=== PATIENT | female | born 1960 | race Hispanic/Latino ===

== ENCOUNTER 2020-01-01 00:18 | Inpatient (IN) | payer SELFPAY ==
[2020-01-01 00:40] LABS: Mean Corpuscular HGB CONC 34.3 g/dL (32.0-36.0); Mean Corpuscular Hemoglobin 30.4 pg (27.0-31.0); Mean Corpuscular Volume 88.6 fL (78.0-98.0); Mean Platelet Volume 9.9 fL (7.4-10.4); Platelet Count 286 thou/uL (130-400); RBC Distribution Width 11.7 % (11.5-14.5); Red Blood Cell (RBC) Count 4.62 mill/uL (4.20-5.40); White Blood Cell (WBC) Count 12.4 thou/uL (4.8-10.8)
[2020-01-01 00:46] LABS: INR-International Normal Ratio 0.9; PTT 31.3 sec (22.9-36.1)
[2020-01-01 00:56] LABS: Lymphocytes 53 % (21-51); MDiff Complete? YES; Neutrophil 47 % (42-75); Platelet Morphology Comment Appears Adequate; RBC Morphology Normal
[2020-01-01 01:06] LABS: ALT (SGPT) 26 U/L (8-55); AST (SGOT) 18 U/L (5-34); Albumin 4.4 g/dL (3.5-5.0); Alkaline Phosphatase 111 U/L (40-110); Anion Gap 15 mmol/L (10-20); BUN (Urea Nitrogen) 17 mg/dL (9.8-20.1); Bilirubin, Total 0.2 mg/dL (0.2-1.2); CK (CPK) 58 U/L (29-168); Calc. Creatinine Clearance 0 mL/min (70-130); Calcium 9.8 mg/dL (7.8-10.44); Carbon Dioxide 24 mmol/L (22-29); Chloride 101 mmol/L (98-107); Estimated GFR-MDRD 72; Globulin 3.4 g/dL (2.4-3.5); Glucose 327 mg/dL (70-105); Potassium 4.2 mmol/L (3.5-5.1); Protein, Total 7.8 g/dL (6.0-8.3); Sodium 136 mmol/L (136-145)
[2020-01-01] MEDS ORDERED: Aspirin 325 MG TAB ONE (01:20)
[2020-01-01] MEDS ORDERED: hydrALAZINE 20 MG/ML VIAL SLOW IVP PRN (01:52)
[2020-01-01] MEDS ORDERED: Labetalol HCl 100 MG/20 ML VIAL SLOW IVP PRN (01:52)
[2020-01-01] MEDS ORDERED: Dextrose 50% Abboject 50 ML SYRINGE SLOW IVP PRN (01:56)
[2020-01-01] MEDS ORDERED: HumaLOG 300 UNITS/3 ML VIAL SC PRN ×2 (01:56)
[2020-01-01] MEDS ORDERED: Dextrose 5% in Water 1,000 ML IV PRN (01:56)
[2020-01-01] MEDS ORDERED: Acetaminophen 325 MG TAB PO PRN (01:57)
[2020-01-01 02:35] LABS: #Basophils 0.1 thou/uL (0.0-0.2); #Eosinphils 0.1 thou/uL (0.0-0.7); #Lymphocytes 3.2 thou/uL (1.20-3.40); #Monocytes 0.5 thou/uL (0.11-0.59); %Basophils 0.9 % (0.0-1.0); %Eosinophils 1.5 % (0.0-10.0); %Lymphocytes 36.2 % (21.0-51.0); %Monocytes 5.6 % (0.0-10.0); %Neutrophils 55.8 % (42.0-75.0); Hemoglobin 13.5 g/dL (12.0-16.0); Mean Corpuscular HGB CONC 34.6 g/dL (32.0-36.0); Mean Corpuscular Hemoglobin 30.8 pg (27.0-31.0); Mean Platelet Volume 9.5 fL (7.4-10.4); Platelet Count 255 thou/uL (130-400); RBC Distribution Width 11.6 % (11.5-14.5); Red Blood Cell (RBC) Count 4.37 mill/uL (4.20-5.40)
[2020-01-01 02:45] LABS: Hemoglobin A1c 11.1 % (4.0-6.0)
--- NOTE | 2020-01-01 02:50 | HP ---
PRIMARY CARE PHYSICIAN: No PCP. CHIEF COMPLAINT: Left-sided numbness. HISTORY OF PRESENT ILLNESS: The patient is a 59-year-old female, with a past medical history significant for type 2 diabetes, smoker and obesity, who presents to the ER for the above complaint. Patient reports at approximately 30 minutes prior to arrival to the ER, she had acute onset of left facial numbness, left upper extremity numbness, and some mild weakness to her left upper extremity while lying in bed. She denies any headache, vision changes, or difficulty swallowing. She denies any recent trauma or falls. She is not on any blood thinners. She denies chest pain. She has no other complaints. For these reasons, she came to the ER. In the ER, the patient presented with hypertensive with a blood pressure of 238/ 113. EKG, normal sinus rhythm, 97 beats per minute. No ST elevations. CT of the brain and CTA of the head and neck were negative for any acute process. The patient was evaluated by the doctor and determined to have an NIH of zero. She was found to have no deficits and had a blood sugar of 327. The patient was given an aspirin full dose. PAST MEDICAL HISTORY: Diabetes, type 2. PAST SURGICAL HISTORY: 1. Hernia x2. 2. . SOCIAL HISTORY: The patient lives with her family in [place]. She does not work. She denies any history of alcohol or illicit drug use. She is a former half pack per day smoker for over 20 years. She quit four months ago. FAMILY HISTORY: Significant for diabetes, hypertension, and stroke. ALLERGIES: NO KNOWN DRUG ALLERGIES. HOME MEDICATIONS: 1. Glipizide 5 mg p.o. daily. 2. Metformin 750 mg p.o. t.i.d. REVIEW OF SYSTEMS: All other review of systems are negative unless otherwise noted in the HPI. PHYSICAL EXAMINATION: VITAL SIGNS: Temperature 98.6, oral; blood pressure 177/101; pulse 82; respirations 20; and SpO2 of 98% on room air. Pain 0/10. CONSTITUTIONAL: Patient appears nontoxic, pain-free, in no acute distress. She is alert and oriented to person, place, and time. HEAD: Atraumatic and normocephalic. EYES: PERRLA. Extraocular muscles are intact. No nystagmus. ENT: Nares are patent bilaterally. No bleeding. Pharynx clear. Uvula midline. Tonsils normal. Moist mucous membranes. NECK: Supple. Trachea midline. No meningeal signs. No cervical adenopathy. No tenderness. RESPIRATORY: Respirations are even and unlabored. No rhonchi, wheezes, or rales appreciated. CARDIOVASCULAR: Regular rate and rhythm. S1 and S2 appreciated. No murmurs, rubs, or gallops. ABDOMEN: Soft and nontender. Active bowel sounds. No peritoneal signs. No rigidity. No guarding. No rebound. Negative Salnias's. BACK: Full range of motion. No central spinous tenderness. No CVA tenderness. EXTREMITIES: Upper extremities, normal range of motion. Normal strength. Palpable radial pulses. Lower extremities, normal range of motion. Normal motor strength. Sensation intact. Palpable posterior tibial pulses and palpable pedal pulses. NEUROLOGIC: Patient is A and O x4 to person, place, and time. She has a normal gait. Cranial nerves 2 through 12 are intact. No focal, no sensory deficits observed or noted. SKIN: Clean, dry, and intact. PSYCHIATRIC: Normal affect. LABORATORIES AND DIAGNOSTICS: EKG normal sinus rhythm, [address] of the brain and CTA of the head and neck were negative for any acute process. Sodium 136, potassium 4.2, chloride 101, carbon dioxide 24, BUN 17, creatinine 0.82, GFR 72, glucose 327, calcium 9.8, total bilirubin 0.2, alkaline phosphatase 111, AST 18, and ALT 26. Initial troponin was negative. WBCs 12.4, hemoglobin 14, hematocrit 40.9, and platelets 286. PT 12 and INR 0.9. IMPRESSION AND PLAN: 1. Left-sided numbness, resolved on arrival. We will admit the patient to stroke unit, observation status. Expected length of stay less than two midnights. Patient presented for left facial and left upper extremity numbness 30 minutes prior to her arrival. She presented hypertensive with a blood pressure of 238/113. EKG was normal sinus rhythm. CT and CTA of the head and neck were negative for any acute process. The patient's blood pressure came down on its own and the symptoms resolved spontaneously. On exam, there are no focal deficits. NIH of zero. We will order MRI, echocardiogram, and chest x-ray. We will consult Neurology and Physical Therapy. We will check fasting lipid, TSH, UA, folate, and B12. We will get a UA. We will perform neuro checks q.4, NIH q.shift. We will allow permissive hypertension. 2. Hypertensive urgency. The patient presented with a blood pressure of 238/ 113. Currently, her blood pressure is 186/80. We will allow permissive hypertension. We will add p.r.n. hydralazine and labetalol. 3. Diabetes, type 2. Patient presented with a blood glucose of 327. We will check a hemoglobin A1c. We will start mild sliding scale. We will perform Accu-Cheks before meals and at bedtime. We will hold patient's home dose of metformin and glipizide at this time. 4. Tobacco abuse. Patient reports a half pack per day [id number] of smoking. She recently quit four months ago. We will camp counselor on tobacco cessation. 5. SCDs for deep venous thrombosis prophylaxis. Pepcid for gastrointestinal prophylaxis. 6. Patient is a full code. She did not give MPOA. 7. Discussed this case with Dr. Christoph Cerda. Job ID: [id number] [facility] HOSPITALWilfred
[2020-01-01 03:05] LABS: Anion Gap 16 mmol/L (10-20); BUN (Urea Nitrogen) 14 mg/dL (9.8-20.1); Calc. Creatinine Clearance 0 mL/min (70-130); Calcium 9.1 mg/dL (7.8-10.44); Carbon Dioxide 21 mmol/L (22-29); Cardiac Risk 5.7 (Less than 4.5); Chloride 101 mmol/L (98-107); Cholesterol 210 mg/dl (< 200 Desired); Estimated GFR-MDRD 72; Glucose 325 mg/dL (70-105); HDL Cholesterol 37 mg/dL (>60 Neg Risk); LDL Cholesterol, Calculated 150 mg/dL; Potassium 4.3 mmol/L (3.5-5.1); Sodium 134 mmol/L (136-145); Triglycerides 115 mg/dL (Less than 150)
[2020-01-01 03:18] LABS: Thyroid Stimulating Hormone 1.6811 uIU/mL (0.35-4.94)
[2020-01-01] MEDS ORDERED: Atorvastatin Calcium 40 MG TAB PO SCH (03:30)
[2020-01-01 04:39] VITALS: BMI 28.7
[2020-01-01 06:59] LABS: Bacteria/HPF None Seen HPF (None Seen); Bilirubin Negative (Negative); Blood, Urine Negative (Negative); Clarity Clear (Clear); Glucose, Urine (Dipstick) 500 mg/dL (Negative); Leukocyte Negative Leu/uL (Negative); Nitrite Negative (Negative); Protein, Urine (Dipstick) Negative (Neg-Trace); RBC/HPF 0-3 HPF (0-3); Squamous Epithelial None Seen HPF (0-3); Urobilinogen Normal mg/dL (Less than 2); WBC/HPF 0-3 HPF (0-3)
--- NOTE | 2020-01-01 07:55 | CT ---
PRELIMINARY REPORT/[facility]/EMERGENCY AFTER HOURS PROCEDURE Receipt of this report by the clinical staff was confirmed with Nneka Cotto MD by April Egan cca on Jan 01, 2020 00:42:00 CDT. 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 Garcia-white matter differentiation is preserved. No hydrocephalus. No intra-cranial hemorrhage. No extra-axial fluid collections. Contents of the orbits are symmetric across the midline. Hyperdensity within the right supraorbital subcutaneous soft tissues. Paranasal sinuses and mastoids are clear. Calvarium is intact. IMPRESSION: 1. No acute intracranial pathology. 2. Likely retained foreign body within the right supraorbital subcutaneous soft tissues. ELECTRONICALLY SIGNED BY: Grazyna Up MD Jan 01, 2020 12:36:43 AM CDT This report is intended for review by the ordering physician only, in accordance of law. If you recei ve this report in error, please call [facility] at [phone]. FINAL REPORT Exam: Head CT without contrast HISTORY: Level 1 stroke. Left facial tingling and left-sided weakness/numbing. COMPARISON: none FINDINGS: Hemorrhage: No intraparenchymal hemorrhage or extra-axial hematoma. Brain parenchyma: Cortical garcia-white matter differentiation is preserved. No mass effect or midline shift. Basilar cisterns are patent. Ventricular system: Ventricles and sulci are patent and symmetric. Calvarium: Intact. Sinuses and mastoid air cells: Adequate aeration. Soft tissues: Foreign body in the right supraorbital soft tissues. IMPRESSION: 1. This report is in agreement with initial report by [facility]. 2. No acute intracranial process. Transcribed Date/Time: 01/01/2020 9:05 AM
--- NOTE | 2020-01-01 08:16 | RAD ---
Exam: Chest one view HISTORY:Transient ischemic attack Comparison: None FINDINGS: Cardiac silhouette: Normal Aorta: Unremarkable Pulmonary vessels: Normal Costophrenic angles: Clear LUNGS: No masses or consolidation. Chronic lung parenchymal changes are suspected. Eventration of the right hemidiaphragm. Pneumothorax: None Osseous abnormalities: None IMPRESSION: No acute cardiopulmonary process.
--- NOTE | 2020-01-01 08:41 | CT ---
PRELIMINARY REPORT/[facility]/EMERGENCY AFTER HOURS PROCEDURE Receipt of this report by the clinical staff was confirmed with Nneka Cotot MD by April Egan cca on Jan 01, 2020 00:55:00 CDT. Addendum electronically signed by Pastora Egan on January 01, 2020 12:56:47 AM CDT EXAM: CTA ANGIO HEAD W WO CON HISTORY: LEVEL 1 STROKE LEFT FACIAL TINGLING AND LEFT SIDED WEAKNESS AND TINGLING STARTED 30 MIN PT A COMPARISON: CT - CT BRAIN WO CON - 01/01/2020 12:26 AM CDT FINDINGS: Eccentric atherosclerotic vascular calcifications at the intracranial ICAs, without flow-limiting asia nosis. Otherwise, there is normal course and caliber of the anterior and posterior arterial circulation of t he head and neck. No evidence for aneurysm or dissection. Visualized soft tissues of the neck are without acute abnormality. No acute intracranial pathology is visualized. Degenerative changes of the cervical spine. IMPRESSION: No flow-limiting stenosis, aneurysm or dissection involving the anterior or posterior arterial circul ation of the head/neck. ELECTRONICALLY SIGNED BY: Grazyna Up MD Jan 01, 2020 12:53:31 AM CDT This report is intended for review by the ordering physician only, in accordance of law. If you recei ve this report in error, please call [facility] at [phone]. FINAL REPORT EXAM: CT ANGIOGRAM OF THE HEAD AND NECK INDICATION: Left facial tingling. Left-sided numbness and weakness. COMPARISON: None TECHNIQUE: CT angiogram of the head and neck are performed in the axial plane. Three-dimensional refo rmatted images are submitted for interpretation. FINDINGS: CTA OF THE HEAD WITH AND WITHOUT CONTRAST: POSTCONTRAST CT OF BRAIN: Pathologic enhancement: No pathologic enhancement the brain. Postcontrast soft tissue neck CT: Sinuses: Adequate aeration. Orbits: Bilateral ocular lenses are appropriately located. Both globes are intact. Retrobulbar fat is preserved. Symmetric attenuation the optic nerves and ocular rectus muscles. Salivary glands:Appropriate attenuation Thyroid gland: Appropriate attenuation Lymph nodes: No evidence of lymphadenopathy by size criteria. Paraspinal muscles: Symmetric attenuation of the sternocleidomastoid muscles. Appropriate attenuation of the paraspinal muscles. Cervical spine:Vertebral body height is maintained. No fracture. No significant central canal stenosi s or significant neural foraminal narrowing. Limited evaluation by technique. Upper mediastinum and lung apices: Patchy groundglass opacities in lung apices are nonspecific. CTA OF THE NECK WITH CONTRAST: Aorta: Appropriate enhancement and luminal diameter of the visualized aorta Right carotid artery: Appropriate enhancement and luminal diameter of the common carotid artery, infante tid bifurcation and internal carotid artery. Small amount of noncalcified plaque with mild stenosis in the common carotid artery is noted Left carotid: Appropriate enhancement and luminal diameter of the common carotid artery, carotid bifu rcation and internal carotid artery. Subclavian arteries:Symmetric and patent Vertebral arteries:Codominant and patent throughout their course in the neck. CTA OF THE BRAIN: Intracranial internal carotid arteries:Appropriate enhancement and luminal diameter Anterior circulation: Appropriate enhancement and luminal diameter of the A1 segment, proximal A2 seg ments, M1 segments and proximal MCA branches. Intracranial vertebral arteries: Patent. Limited evaluation of bilateral PICA artery origins Posterior circulation: Both vertebral arteries supply normal caliber basilar artery. Bilateral P1 seg ments have appropriate enhancement and luminal diameter. IMPRESSION: 1. This report is in agreement with initial report by [facility]. 2. No evidence of significant stenosis based upon NASCET criteria with regards to the cervical caroti d arteries. 3. No significant stenosis or occlusion at the level of the [place] of [place]. Transcribed Date/Time: 01/01/2020 9:10 AM
[2020-01-01] MEDS: Famotidine 20 MG TAB PO SCH ×2 (08:56→21:46)
[2020-01-01] MEDS: Insulin Glargine 10 UNITS in Pre-Filled Syringe 1 EACH SC SCH ×2 (08:56→21:46)
[2020-01-01] MEDS: Aspirin 325 mg Enteric Coated Tablet PO SCH (08:56)
--- NOTE | 2020-01-01 10:15 | MRI ---
Exam: Brain MRI without contrast HISTORY: Level 1 stroke. Left facial tingling and left-sided weakness/tingling. COMPARISON: None FINDINGS: Calvarial marrow signal intensity: Appropriate T1 signal Gradient echo sequence: No hemorrhage Brain parenchyma: No mass, mass effect or midline shift. Brain volume, age-appropriate. Cortical petit-white matter differentiation: Preserved Restricted diffusion: Central arterial flow is maintained. There is a small focus of T2 and FLAIR hyp erintensity with associated restricted diffusion in the right thalamus. Acute right thalamic infarct. White matter signal intensities:No significant T2 or FLAIR white matter hyperintensities to suggest c hronic small vessel ischemic changes of the white matter Sinuses: Adequate aeration of the paranasal sinuses and mastoid air cells. IMPRESSION: 1. Acute right thalamic infarct.
[2020-01-01] MEDS ORDERED: Cyanocobalamin (Vitamin B-12) 1,000 MCG TAB PO SCH (11:00)
[2020-01-01] MEDS ORDERED: Magnesium 2 GM/50 ML 2 GM in Premix Bag 1 BAG IVPB SCH (11:15)
[2020-01-01] MEDS: HumaLOG 300 UNITS/3 ML VIAL SC PRN ×2 (12:01→18:04)
[2020-01-01] MEDS ORDERED: Iopamidol-370 76% 500 ML 1 ML ONE (13:26)
--- NOTE | 2020-01-01 13:45 | CON ---
DATE OF CONSULTATION: 01/01/2020 CONSULTING PHYSICIAN: Hospitalist Service. IMPRESSION: 1. Thalamic lacunar infarction on the right. 2. Severe hypertension. 3. Diabetes. PLAN: 1. Continue aspirin. 2. Blood pressure and blood sugar control. 3. Follow up on echocardiogram. HISTORY OF PRESENT ILLNESS: Ms. Mcclure is a 59-year-old female who came in with complaints of left hemibody numbness. Her MRI subsequently revealed a right thalamic stroke. She was severely hypertensive with pressures of 238/113. Her blood glucose was 327. She had initial CT of the brain, which did not show any hemorrhage. Her CT angiogram did not show any stenosis. She does admit to smoking cigarettes. Her EKG showed a normal sinus rhythm. Her lab work was otherwise unremarkable. She has been started on aspirin. She reports the numbness is better. She has been able to get around the room without any problems. There are no swallowing difficulties, headache, nausea, vomiting, or double vision. PAST MEDICAL HISTORY: 1. Hypertension. 2. Diabetes. SOCIAL HISTORY: Positive for tobacco. ALLERGIES: NONE REPORTED. FAMILY HISTORY: Noncontributory. REVIEW OF SYSTEMS: Limited 10-system review of systems, was otherwise unremarkable. PHYSICAL EXAMINATION: GENERAL: She is a slightly overweight middle-aged woman, in no acute distress. HEENT: Pupils equal and reactive. Conjunctivae clear. Oropharynx clear. NECK: Supple. EXTREMITIES: No cyanosis, clubbing, or edema. NEUROLOGIC: She is alert and cooperative. She is Armenian-speaking only. Cranial nerves were intact. Motor exam showed good strength bilaterally. Gait was steady and narrow based. She reported a slight decrease in sensation to light touch on the left side. No abnormal movements were seen. SUMMARY: This is a middle-aged woman with vascular risk factors, resulting in a secondary small-vessel stroke. I agree with your management. Job ID: [id number]
[2020-01-02 04:46] LABS: #Eosinphils 0.1 thou/uL (0.0-0.7); #Lymphocytes 3.7 thou/uL (1.20-3.40); #Monocytes 0.5 thou/uL (0.11-0.59); #Neutrophils 4.8 thou/uL (1.40-6.50); %Basophils 0.5 % (0.0-1.0); %Eosinophils 1.4 % (0.0-10.0); %Lymphocytes 39.7 % (21.0-51.0); %Monocytes 5.9 % (0.0-10.0); %Neutrophils 52.5 % (42.0-75.0); Hemoglobin 13.6 g/dL (12.0-16.0); Mean Corpuscular Hemoglobin 30.3 pg (27.0-31.0); Mean Platelet Volume 9.4 fL (7.4-10.4); Platelet Count 258 thou/uL (130-400); RBC Distribution Width 11.9 % (11.5-14.5); Red Blood Cell (RBC) Count 4.49 mill/uL (4.20-5.40); White Blood Cell (WBC) Count 9.2 thou/uL (4.8-10.8)
[2020-01-02] MEDS: HumaLOG 300 UNITS/3 ML VIAL SC PRN ×3 (04:59→18:21)
[2020-01-02 05:14] LABS: Anion Gap 15 mmol/L (10-20); BUN (Urea Nitrogen) 15 mg/dL (9.8-20.1); Calc. Creatinine Clearance 99 mL/min (70-130); Calcium 8.7 mg/dL (7.8-10.44); Carbon Dioxide 20 mmol/L (22-29); Chloride 105 mmol/L (98-107); Estimated GFR-MDRD 82; Glucose 228 mg/dL (70-105); Magnesium 1.9 mg/dL (1.6-2.6); Potassium 4.2 mmol/L (3.5-5.1); Sodium 136 mmol/L (136-145)
[2020-01-02] MEDS ORDERED: Carvedilol 3.125 MG TAB PO SCH ×2 (10:00→17:00)
[2020-01-02] MEDS ORDERED: Lisinopril 5 MG TAB PO SCH (10:00)
[2020-01-02] MEDS: Aspirin 325 mg Enteric Coated Tablet PO SCH (10:54)
[2020-01-02] MEDS: Insulin Glargine 10 UNITS in Pre-Filled Syringe 1 EACH SC SCH ×2 (10:54→22:03)
[2020-01-02] MEDS: Famotidine 20 MG TAB PO SCH ×2 (10:55→21:57)
[2020-01-02] MEDS: Cyanocobalamin (Vitamin B-12) 1,000 MCG TAB PO SCH (10:55)
--- NOTE | 2020-01-02 11:24 | PDOC.HOSPP ---
- Subjective Encounter Date: 01/02/20 Subjective: NEUROLOGY PROGRESS NOTE Patient has no acute events overnight. Improvement in focal paraesthesias and weakness. History and exam done with the help of Kinyarwanda video Interpretor. Daughter from bedside. - Objective Vital Signs & Weight: Vital Signs (12 hours) Temp Pulse Resp BP Pulse Ox 01/02/20 04:42 98.3 F 78 14 158/74 H 97 01/02/20 00:13 98.1 F 80 16 182/82 H 98 Weight Weight 162 lb 3.2 oz I&O: 01/01/20 01/02/20 01/03/20 06:59 06:59 06:59 Intake Total 156 1240 Output Total 650 Balance 156 590 Result Diagrams: 01/02/20 04:20 01/02/20 04:20 Additional Labs: Accuchecks 01/02/20 01/02/20 01/01/20 11:02 05:01 21:47 POC Glucose 379 H 211 H 192 H 01/01/20 17:16 POC Glucose 247 H Radiology Reviewed by me: Yes EKG Reviewed by me: Yes Hospitalist ROS - Review of Systems Constitutional: denies: fever, chills, sweats, weakness, malaise, other Eyes: denies: pain, vision change, conjunctivae inflammation, eyelid inflammation, redness, other ENT: denies: ear pain, ear discharge, nose pain, nose discharge, nose congestion , mouth pain, mouth swelling, throat pain, throat swelling, other Respiratory: denies: cough, dry, shortness of breath, hemoptysis, SOB with excertion, pleuritic pain, sputum, wheezing, other Cardiovascular: denies: chest pain, palpitations, orthopnea, paroxysmal noc. dyspnea, edema, light headedness, other Gastrointestinal: denies: nausea, vomiting, abdominal pain, diarrhea, constipation, melena, hematochezia, other Genitourinary: denies: dysuria, frequency, incontinence, hematuria, retention, other Musculoskeletal: denies: neck pain, shoulder pain, arm pain, back pain, hand pain, leg pain, foot pain, other Neurological: reports: numbness. denies: weakness, incoordination, change in speech, confusion, seizures, other - Medication Medications: Active Medications Generic Name Dose Route Start Last Admin Trade Name Freq PRN Reason Stop Dose Admin Acetaminophen 650 mg 01/01/20 01:57 01/01/20 12:00 Tylenol PO 650 mg Q4H PRN Administration Headache/Fever/Mild Pain (1-3) Aspirin 325 mg 01/01/20 09:00 01/01/20 08:56 Ecotrin PO 325 mg DAILY LOREE Administration Famotidine 20 mg 01/01/20 09:00 01/01/20 21:46 Pepcid PO 20 mg BID LOREE Administration Hydralazine HCl 10 mg 01/01/20 01:52 01/01/20 12:00 Apresoline SLOW IVP 10 mg Q4H PRN Administration BP > 220/110 Insulin Glargine 10 units/ 0.1 mls @ 0 mls/hr 01/01/20 09:00 01/01/20 08:56 Miscellaneous Medication SC 0.1 mls QAM LOREE Administration Insulin Glargine 10 units/ 0.1 mls @ 0 mls/hr 01/01/20 21:00 01/01/20 21:46 Miscellaneous Medication SC 0.1 mls HS LOREE Administration Insulin Human Lispro 0 units 01/01/20 11:09 01/02/20 04:59 Humalog SC 4 unit .MODERATE SLIDING SC PRN Administration Moderate Correctional Scale Sodium Chloride 10 ml 01/01/20 01:52 01/01/20 04:09 Flush - Normal Saline IVF 10 ml PRN PRN Administration Saline Flush Sodium Chloride 10 ml 01/01/20 10:48 01/01/20 21:47 Flush - Normal Saline IVF 10 ml PRN PRN Administration Saline Flush - Exam General Appearance: awake alert Eye: PERRL ENT: normocephalic atraumatic Neck: supple Heart: RRR Respiratory: CTAB Gastrointestinal: soft Extremities: no cyanosis Skin: normal turgor Neurological: cranial nerve grossly intact, no new deficit Neurological - other findings: focal right hemibody paraesthesias , right hemiparesis Musculoskeletal: normal tone, normal strength, no muscle wasting Psychiatric: normal affect, normal behavior, A&O x 3, oriented to person, oriented to place, oriented to time Hosp A/P (1) Acute thalamic infarction Code(s): I63.9 - CEREBRAL INFARCTION, UNSPECIFIED Status: Acute (2) Hypertension Code(s): I10 - ESSENTIAL (PRIMARY) HYPERTENSION Status: Acute (3) Diabetes Code(s): E11.9 - TYPE 2 DIABETES MELLITUS WITHOUT COMPLICATIONS Status: Acute - Plan PT/OT, speech therapy, out of bed/ambulate 59 year old female with hypertensive emergency and left focal paraesthesias and left hemiparesis. MRI Brain reviewed which was consistent with acute right thalamic infarction. Echo showed [id number] CTA of the head and neck reviewed which was negative for hemodynamically significant stenosis. Neurochecks every 4 hours. Aspirin and high intensity statin for secondary stroke prevention. Continue home medications. PT/OT/Speech Telemetry. Permissive BP control. Strict control of BG. Continue medical management per primary team. Plan discussed with the patient and the daughter with the help of a Kinyarwanda Interpretor
[2020-01-02] MEDS ORDERED: glyBURIDE 5 MG TAB PO SCH (12:00)
[2020-01-02] MEDS ORDERED: cloNIDine 0.1 MG TAB PO PRN (15:54)
--- NOTE | 2020-01-02 18:22 | PDOC.EVN ---
Event Note - Event Note Event Note: Due to uncontrolled HTN, discharge will be held.
[2020-01-02] MEDS ORDERED: NIFEdipine XL 30 MG TAB PO SCH (18:30)
[2020-01-02] MEDS ORDERED: Atorvastatin Calcium 40 MG TAB PO SCH (21:00)
[2020-01-02] MEDS: Lisinopril 5 MG TAB PO SCH (21:58)
[2020-01-03] MEDS ORDERED: ALPRAZolam 0.25 MG TAB PO SCH (02:15)
[2020-01-03] MEDS: HumaLOG 300 UNITS/3 ML VIAL SC PRN ×2 (06:32→11:24)
[2020-01-03] MEDS ORDERED: glyBURIDE 5 MG TAB PO SCH ×2 (07:30→16:30)
[2020-01-03] MEDS ORDERED: Carvedilol 6.25 MG TAB PO SCH ×2 (08:00→17:00)
[2020-01-03] MEDS: Aspirin 325 mg Enteric Coated Tablet PO SCH (08:25)
[2020-01-03] MEDS: Cyanocobalamin (Vitamin B-12) 1,000 MCG TAB PO SCH (08:25)
[2020-01-03] MEDS: Lisinopril 5 MG TAB PO SCH (08:25)
[2020-01-03] MEDS: Famotidine 20 MG TAB PO SCH (08:25)
[2020-01-03] MEDS: Insulin Glargine 10 UNITS in Pre-Filled Syringe 1 EACH SC SCH (08:29)
[2020-01-03] MEDS ORDERED: Lisinopril 2.5 MG TAB PO SCH (09:00)
[2020-01-03] MEDS ORDERED: NIFEdipine XL 30 MG TAB PO SCH (09:15)
[2020-01-03] MEDS ORDERED: ALPRAZolam 0.25 MG TAB PO PRN (09:16)
--- NOTE | 2020-01-03 09:18 | PDOC.HOSPP ---
- Subjective Encounter Date: 01/02/20 Encounter Time: 09:00 Subjective: Patient seen and examined for Acute CVA. No new focal deficits. No new complaints. No overnight events - Objective Vital Signs & Weight: Vital Signs (12 hours) Temp Pulse Resp BP BP BP Pulse Ox 01/03/20 08:25 95 176/81 H 01/03/20 07:45 97.9 F 95 16 176/81 H 99 01/03/20 04:15 97.8 F 104 H 15 133/69 98 01/02/20 23:45 98.3 F 80 16 176/84 H 96 01/02/20 21:58 76 176/81 H Weight Weight 162 lb 3.2 oz I&O: 01/02/20 01/03/20 01/04/20 06:59 06:59 06:59 Intake Total 1240 886 Output Total 650 Balance 590 886 Result Diagrams: 01/02/20 04:20 01/02/20 04:20 Additional Labs: Accuchecks 01/03/20 01/02/20 01/02/20 06:09 22:06 15:48 POC Glucose 222 H 183 H 246 H 01/02/20 11:02 POC Glucose 379 H Radiology Reviewed by me: Yes (MRI - Acute CVA) EKG Reviewed by me: Yes (Tele SR) Hospitalist ROS - Review of Systems Respiratory: denies: cough, dry, shortness of breath, hemoptysis, SOB with excertion, pleuritic pain, sputum, wheezing, other Cardiovascular: denies: chest pain, palpitations, orthopnea, paroxysmal noc. dyspnea, edema, light headedness, other - Medication Medications: Active Medications Generic Name Dose Route Start Last Admin Trade Name Freq PRN Reason Stop Dose Admin Acetaminophen 650 mg 01/01/20 01:57 01/01/20 12:00 Tylenol PO 650 mg Q4H PRN Administration Headache/Fever/Mild Pain (1-3) Aspirin 325 mg 01/01/20 09:00 01/03/20 08:25 Ecotrin PO 325 mg DAILY LOREE Administration Atorvastatin Calcium 40 mg 01/02/20 21:00 01/02/20 21:57 Lipitor PO 40 mg HS LOREE Administration Carvedilol 6.25 mg 01/03/20 08:00 01/03/20 08:25 Coreg PO 6.25 mg BID-WM LOREE Administration Clonidine 0.1 mg 01/02/20 15:54 01/02/20 16:22 Catapres PO 0.1 mg Q4H PRN Administration SBP Greater Than 180 Cyanocobalamin 1,000 mcg 01/02/20 09:00 01/03/20 08:25 Vitamin B-12 PO 1,000 mcg DAILY LOREE Administration Famotidine 20 mg 01/01/20 09:00 01/03/20 08:25 Pepcid PO 20 mg BID LOREE Administration Glyburide 5 mg 01/03/20 07:30 01/03/20 08:25 Diabeta PO 5 mg BID-AC LOREE Administration Hydralazine HCl 10 mg 01/01/20 01:52 01/01/20 12:00 Apresoline SLOW IVP 10 mg Q4H PRN Administration BP > 220/110 Insulin Glargine 10 units/ 0.1 mls @ 0 mls/hr 01/01/20 09:00 01/03/20 08:29 Miscellaneous Medication SC 0.1 mls QAM LOREE Administration Insulin Glargine 10 units/ 0.1 mls @ 0 mls/hr 01/01/20 21:00 01/02/20 22:03 Miscellaneous Medication SC 0.1 mls HS LOREE Administration Insulin Human Lispro 0 units 01/01/20 11:09 01/03/20 06:32 Humalog SC 4 unit .MODERATE SLIDING SC PRN Administration Moderate Correctional Scale Lisinopril 5 mg 01/02/20 21:00 01/03/20 08:25 Zestril PO 5 mg BID LOREE Administration Sodium Chloride 10 ml 01/01/20 10:48 01/01/20 21:47 Flush - Normal Saline IVF 10 ml PRN PRN Administration Saline Flush - Exam General Appearance: NAD Heart: RRR, no gallops, no rubs, normal peripheral pulses Respiratory: no wheezes, no rales, no ronchi, normal chest expansion Gastrointestinal: soft, normal bowel sounds, no guarding, no rigidity Extremities: no cyanosis, no clubbing Neurological: no new deficit Psychiatric: normal affect, A&O x 3 Hosp A/P - Plan DVT proph w/SCDs Acute Rt thalamic CVA DM2 - uncontrolled Vit B12 def Former smoker Hypomagnesemia Dyslipidemia PLAN: Aspirin started Cont Statins Replace Vit B12 Magnesium replaced Started on Lantus Insulin Counselled on DM2 Stroke team Echo reviewed Add Coreg/Lisinopril for elevated BP DC if BP ok
--- NOTE | 2020-01-03 12:34 | PDOC.HOSPP ---
- Subjective Encounter Date: 01/03/20 Subjective: NEUROLOGY PROGRESS NOTE Patient has no acute events overnight. Improvement in focal paraesthesias and weakness. Daughter from bedside. - Objective Vital Signs & Weight: Vital Signs (12 hours) Temp Pulse Pulse Pulse Resp BP BP 01/03/20 11:50 98.5 F 78 18 01/03/20 11:28 81 01/03/20 09:44 86 87 191/84 H 01/03/20 09:42 86 191/84 H 01/03/20 08:25 95 176/81 H 01/03/20 07:45 97.9 F 95 16 01/03/20 04:15 97.8 F 104 H 15 BP BP BP Pulse Ox 01/03/20 11:50 180/81 H 98 01/03/20 11:28 173/76 H 01/03/20 09:44 182/84 H 01/03/20 09:42 01/03/20 08:25 99 01/03/20 07:45 176/81 H 99 01/03/20 04:15 133/69 98 Weight Weight 162 lb 3.2 oz I&O: 01/02/20 01/03/20 01/04/20 06:59 06:59 06:59 Intake Total 1240 886 Output Total 650 Balance 590 886 Result Diagrams: 01/02/20 04:20 01/02/20 04:20 Additional Labs: Accuchecks 01/03/20 01/03/20 01/02/20 11:08 06:09 22:06 POC Glucose 315 H 222 H 183 H 01/02/20 15:48 POC Glucose 246 H Radiology Reviewed by me: Yes EKG Reviewed by me: Yes Hospitalist ROS - Review of Systems Constitutional: denies: fever, chills, sweats, weakness, malaise, other Eyes: denies: pain, vision change, conjunctivae inflammation, eyelid inflammation, redness, other ENT: denies: ear pain, ear discharge, nose pain, nose discharge, nose congestion , mouth pain, mouth swelling, throat pain, throat swelling, other Respiratory: denies: cough, dry, shortness of breath, hemoptysis, SOB with excertion, pleuritic pain, sputum, wheezing, other Cardiovascular: denies: chest pain, palpitations, orthopnea, paroxysmal noc. dyspnea, edema, light headedness, other Gastrointestinal: denies: nausea, vomiting, abdominal pain, diarrhea, constipation, melena, hematochezia, other Musculoskeletal: denies: neck pain, shoulder pain, arm pain, back pain, hand pain, leg pain, foot pain, other Neurological: reports: weakness, numbness - Medication Medications: Active Medications Generic Name Dose Route Start Last Admin Trade Name Freq PRN Reason Stop Dose Admin Acetaminophen 650 mg 01/01/20 01:57 01/01/20 12:00 Tylenol PO 650 mg Q4H PRN Administration Headache/Fever/Mild Pain (1-3) Aspirin 325 mg 01/01/20 09:00 01/03/20 08:25 Ecotrin PO 325 mg DAILY LOREE Administration Atorvastatin Calcium 40 mg 01/02/20 21:00 01/02/20 21:57 Lipitor PO 40 mg HS LOREE Administration Carvedilol 6.25 mg 01/03/20 08:00 01/03/20 08:25 Coreg PO 6.25 mg BID-WM LOREE Administration Clonidine 0.1 mg 01/02/20 15:54 01/02/20 16:22 Catapres PO 0.1 mg Q4H PRN Administration SBP Greater Than 180 Cyanocobalamin 1,000 mcg 01/02/20 09:00 01/03/20 08:25 Vitamin B-12 PO 1,000 mcg DAILY LOREE Administration Famotidine 20 mg 01/01/20 09:00 01/03/20 08:25 Pepcid PO 20 mg BID LOREE Administration Hydralazine HCl 10 mg 01/01/20 01:52 01/01/20 12:00 Apresoline SLOW IVP 10 mg Q4H PRN Administration BP > 220/110 Insulin Human Lispro 0 units 01/01/20 11:09 01/03/20 11:24 Humalog SC 8 unit .MODERATE SLIDING SC PRN Administration Moderate Correctional Scale Lisinopril 5 mg 01/02/20 21:00 01/03/20 08:25 Zestril PO 5 mg BID LOREE Administration Sodium Chloride 10 ml 01/01/20 10:48 01/01/20 21:47 Flush - Normal Saline IVF 10 ml PRN PRN Administration Saline Flush - Exam Eye: PERRL, anicteric sclera ENT: normocephalic atraumatic, no oropharyngeal lesions, moist mucosa Neck: supple Heart: RRR Respiratory: CTAB Gastrointestinal: soft Extremities: no cyanosis Skin: normal turgor Neurological: no new deficit Neurological - other findings: right hemiparesis and numbness Musculoskeletal: normal tone, normal strength, no muscle wasting Psychiatric: normal affect, normal behavior, oriented to place Hosp A/P (1) Acute thalamic infarction Code(s): I63.9 - CEREBRAL INFARCTION, UNSPECIFIED Status: Acute (2) Hypertension Code(s): I10 - ESSENTIAL (PRIMARY) HYPERTENSION Status: Acute (3) Diabetes Code(s): E11.9 - TYPE 2 DIABETES MELLITUS WITHOUT COMPLICATIONS Status: Acute - Plan plan discussed w/ family, PT/OT, speech therapy, out of bed/ambulate 59 year old female with hypertensive emergency and left focal paraesthesias and left hemiparesis. BP medication adjusted today otherwise stroke work up complete MRI Brain reviewed which was consistent with acute right thalamic infarction. Echo showed [id number] CTA of the head and neck reviewed which was negative for hemodynamically significant stenosis. Neurochecks every 4 hours. Aspirin and high intensity statin for secondary stroke prevention. Continue home medications. PT/OT/Speech Telemetry. Strict control of BG and BP. Continue medical management per primary team. Plan discussed with the patient and the daughter with the help of a nursing staff.
--- NOTE | 2020-01-03 14:37 | PDOC.HOSPP ---
- Subjective Encounter Date: 01/03/20 Encounter Time: 11:30 Subjective: Patient seen and examined for acute CVA. No new focal deficits. No new complaints. No overnight events - Objective Vital Signs & Weight: Vital Signs (12 hours) Temp Pulse Pulse Pulse Resp BP BP 01/03/20 13:39 80 01/03/20 11:50 98.5 F 78 18 01/03/20 11:28 81 01/03/20 09:44 86 87 191/84 H 01/03/20 09:42 86 191/84 H 01/03/20 08:25 95 176/81 H 01/03/20 07:45 97.9 F 95 16 01/03/20 04:15 97.8 F 104 H 15 BP BP BP Pulse Ox 01/03/20 13:39 176/80 H 01/03/20 11:50 180/81 H 98 01/03/20 11:28 173/76 H 01/03/20 09:44 182/84 H 01/03/20 09:42 01/03/20 08:25 99 01/03/20 07:45 176/81 H 99 01/03/20 04:15 133/69 98 Weight Weight 162 lb 3.2 oz I&O: 01/02/20 01/03/20 01/04/20 06:59 06:59 06:59 Intake Total 1240 886 Output Total 650 Balance 590 886 Result Diagrams: 01/02/20 04:20 01/02/20 04:20 Additional Labs: Accuchecks 01/03/20 01/03/20 01/02/20 11:08 06:09 22:06 POC Glucose 315 H 222 H 183 H 01/02/20 15:48 POC Glucose 246 H EKG Reviewed by me: Yes (Tele SR) Hospitalist ROS - Review of Systems Respiratory: denies: cough, dry, shortness of breath, hemoptysis, SOB with excertion, pleuritic pain, sputum, wheezing, other Cardiovascular: denies: chest pain, palpitations, orthopnea, paroxysmal noc. dyspnea, edema, light headedness, other Gastrointestinal: denies: nausea, vomiting, abdominal pain, diarrhea, constipation, melena, hematochezia, other - Medication Medications: Active Medications Generic Name Dose Route Start Last Admin Trade Name Freq PRN Reason Stop Dose Admin Acetaminophen 650 mg 01/01/20 01:57 01/01/20 12:00 Tylenol PO 650 mg Q4H PRN Administration Headache/Fever/Mild Pain (1-3) Atorvastatin Calcium 40 mg 01/02/20 21:00 01/02/20 21:57 Lipitor PO 40 mg HS LOREE Administration Clonidine 0.1 mg 01/02/20 15:54 01/02/20 16:22 Catapres PO 0.1 mg Q4H PRN Administration SBP Greater Than 180 Cyanocobalamin 1,000 mcg 01/02/20 09:00 01/03/20 08:25 Vitamin B-12 PO 1,000 mcg DAILY LOREE Administration Famotidine 20 mg 01/01/20 09:00 01/03/20 08:25 Pepcid PO 20 mg BID LOREE Administration Hydralazine HCl 10 mg 01/01/20 01:52 01/01/20 12:00 Apresoline SLOW IVP 10 mg Q4H PRN Administration BP > 220/110 Insulin Human Lispro 0 units 01/01/20 11:09 01/03/20 11:24 Humalog SC 8 unit .MODERATE SLIDING SC PRN Administration Moderate Correctional Scale Sodium Chloride 10 ml 01/01/20 10:48 01/01/20 21:47 Flush - Normal Saline IVF 10 ml PRN PRN Administration Saline Flush - Exam General Appearance: NAD Heart: RRR, no gallops, no rubs, normal peripheral pulses Respiratory: no wheezes, no rales, no ronchi, normal chest expansion Gastrointestinal: soft, non-tender, non-distended, normal bowel sounds, no guarding, no rigidity Extremities: no cyanosis Neurological: no new deficit Psychiatric: normal affect, A&O x 3 Hosp A/P - Plan DVT proph w/lovenox, DVT proph w/SCDs Acute Rt thalamic CVA DM2 Vit B12 def Former smoker Hypomagnesemia Dyslipidemia Anxiety PLAN: Cont Aspirin with Statins Cont Vit B12 supp Increase Lantus to 20 qam and 15 qpm Cont sliding scale Increase Coreg/Lisinopril due to uncontrolled HTN DC later today or in AM once BP stable
[2020-01-03 16:09] VITALS: TEMP 98.3
[2020-01-03 16:12] VITALS: BP 154/60
--- NOTE | 2020-01-03 19:09 | DIS ---
Cancelled Job ID: [id number] MTDD
[2020-01-03] MEDS ORDERED: Insulin Glargine 15 UNITS in Pre-Filled Syringe 1 EACH SC SCH (21:00)
[2020-01-03] MEDS ORDERED: Lisinopril 10 MG TAB PO SCH (21:00)
--- NOTE | 2020-01-04 05:25 | DIS ---
DATE OF ADMISSION: 01/01/2020 DATE OF DISCHARGE: 01/03/2020 DISCHARGE DISPOSITION: Home. FOLLOWUP: Follow up with Dr. Tai at [facility] in 1 week. ALLERGIES: NO KNOWN DRUG ALLERGIES. THE PATIENT WAS SEEN AND EXAMINED ON THE DAY OF DISCHARGE. DENIES ANY NEW COMPLAINTS. PHYSICAL EXAMINATION: VITAL SIGNS: Showed temperature 98.3 with pulse rate of 78, respirations of 14, with O2 saturation 97% on room air. Blood pressure in systolic 150s. GENERAL: The patient in no apparent distress. No new focal findings. LUNGS: Clear to auscultation bilaterally. HEART: S1, S2 present. Regular. BRIEF HOSPITAL COURSE: The patient is a 59-year-old female with diabetes mellitus type 2 and medication noncompliance, presented to the emergency room with stroke-like symptoms. She had weakness and numbness on the left half of her body including her face. Her initial CT scan of the brain was negative. CT angiogram of the head was negative for flow-limiting disease. MRI of the brain was consistent with acute right thalamic CVA. Echocardiogram showed ejection fraction 45% to 50% with diastolic dysfunction, mild mitral and tricuspid regurgitation. Lifestyle modification was emphasized. She has been started on low-dose carvedilol and lisinopril for blood pressure. Due to uncontrolled diabetes with hemoglobin A1c of 11.1, low-dose NPH was added to her home diabetic regimen. She was advised to monitor her blood sugars and blood pressure on a daily basis. Vitamin B12 was also started since the level was 170. FINAL DIAGNOSES: 1. Acute right thalamic cardiovascular accident. 2. Uncontrolled diabetes mellitus type 2 with medication noncompliance. 3. Vitamin B12 deficiency. 4. Former smoker. 5. Hypertension. 6. Chronic diastolic heart failure. 7. Hypomagnesemia, replaced. 8. Dyslipidemia. The patient understands the above plan of care. The patient was extensively counseled on insulin. She is comfortable with self insulin injections. TIME SPENT: Time coordinating the discharge of this patient was 36 minutes. Job ID: [id number]
[2020-01-04] MEDS ORDERED: Insulin Glargine 20 UNITS in Pre-Filled Syringe 1 EACH SC SCH (09:00)
[2020-01-04] MEDS ORDERED: Aspirin 81 mg Enteric Coated Tablet PO SCH (09:00)
--- NOTE | 2020-01-06 13:05 | CT ---
PRELIMINARY REPORT/[facility]/EMERGENCY AFTER HOURS PROCEDURE Receipt of this report by the clinical staff was confirmed with Nneka Cotto MD by April Egan cca on Jan 01, 2020 00:55:00 CDT. Addendum electronically signed by Pastora Egan on January 01, 2020 12:56:47 AM CDT EXAM: CTA ANGIO HEAD W WO CON HISTORY: LEVEL 1 STROKE LEFT FACIAL TINGLING AND LEFT SIDED WEAKNESS AND TINGLING STARTED 30 MIN PT A COMPARISON: CT - CT BRAIN WO CON - 01/01/2020 12:26 AM CDT FINDINGS: Eccentric atherosclerotic vascular calcifications at the intracranial ICAs, without flow-limiting asia nosis. Otherwise, there is normal course and caliber of the anterior and posterior arterial circulation of t he head and neck. No evidence for aneurysm or dissection. Visualized soft tissues of the neck are without acute abnormality. No acute intracranial pathology is visualized. Degenerative changes of the cervical spine. IMPRESSION: No flow-limiting stenosis, aneurysm or dissection involving the anterior or posterior arterial circul ation of the head/neck. ELECTRONICALLY SIGNED BY: Grazyna Up MD Jan 01, 2020 12:53:31 AM CDT This report is intended for review by the ordering physician only, in accordance of law. If you recei ve this report in error, please call [facility] at [phone]. FINAL REPORT EXAM: CT ANGIOGRAM OF THE HEAD AND NECK INDICATION: Left facial tingling. Left-sided numbness and weakness. COMPARISON: None TECHNIQUE: CT angiogram of the head and neck are performed in the axial plane. Three-dimensional refo rmatted images are submitted for interpretation. FINDINGS: CTA OF THE HEAD WITH AND WITHOUT CONTRAST: POSTCONTRAST CT OF BRAIN: Pathologic enhancement: No pathologic enhancement the brain. Postcontrast soft tissue neck CT: Sinuses: Adequate aeration. Orbits: Bilateral ocular lenses are appropriately located. Both globes are intact. Retrobulbar fat is preserved. Symmetric attenuation the optic nerves and ocular rectus muscles. Salivary glands:Appropriate attenuation Thyroid gland: Appropriate attenuation Lymph nodes: No evidence of lymphadenopathy by size criteria. Paraspinal muscles: Symmetric attenuation of the sternocleidomastoid muscles. Appropriate attenuation of the paraspinal muscles. Cervical spine:Vertebral body height is maintained. No fracture. No significant central canal stenosi s or significant neural foraminal narrowing. Limited evaluation by technique. Upper mediastinum and lung apices: Patchy groundglass opacities in lung apices are nonspecific. CTA OF THE NECK WITH CONTRAST: Aorta: Appropriate enhancement and luminal diameter of the visualized aorta Right carotid artery: Appropriate enhancement and luminal diameter of the common carotid artery, infante tid bifurcation and internal carotid artery. Small amount of noncalcified plaque with mild stenosis in the common carotid artery is noted Left carotid: Appropriate enhancement and luminal diameter of the common carotid artery, carotid bifu rcation and internal carotid artery. Subclavian arteries:Symmetric and patent Vertebral arteries:Codominant and patent throughout their course in the neck. CTA OF THE BRAIN: Intracranial internal carotid arteries:Appropriate enhancement and luminal diameter Anterior circulation: Appropriate enhancement and luminal diameter of the A1 segment, proximal A2 seg ments, M1 segments and proximal MCA branches. Intracranial vertebral arteries: Patent. Limited evaluation of bilateral PICA artery origins Posterior circulation: Both vertebral arteries supply normal caliber basilar artery. Bilateral P1 seg ments have appropriate enhancement and luminal diameter. IMPRESSION: 1. This report is in agreement with initial report by [facility]. 2. No evidence of significant stenosis based upon NASCET criteria with regards to the cervical caroti d arteries. 3. No significant stenosis or occlusion at the level of the [place]. Transcribed Date/Time: 01/06/2020 1:04 PM
--- NOTE | 2020-01-07 14:38 | EKG ---
Test Reason : Blood Pressure : / mmHG Vent. Rate : 097 BPM Atrial Rate : 097 BPM P-R Int : 124 ms QRS Dur : 086 ms QT Int : 342 ms P-R-T Axes : 044 -13 195 degrees QTc Int : 434 ms Sinus rhythm with occasional Premature ventricular complexes Left ventricular hypertrophy with repolarization abnormality Abnormal ECG Confirmed by LIA LAZARO ([id number]), field map editor JAMAL PANIAGUA ([id number]) on 01/07/2020 2:38:42 PM Referred By: Confirmed By:LIA LAZARO
== END 2020-01-03 17:37 | disposition home or self-care (01) | DRG 65 ==
LOC: ERS 00:18 → OBSVTOIN 01:39 → 2SE 01:39
PROVIDERS: ADMIT Internal Medicine; ATTEND Internal Medicine
DX: I63.89 Other cerebral infarction (principal); I50.32 Chronic diastolic (congestive) heart failure; I16.1 Hypertensive emergency; G81.94 Hemiplegia, unspecified affecting left nondominant side; E11.65 Type 2 diabetes mellitus with hyperglycemia; E53.8 Deficiency of other specified B group vitamins; I11.0 Hypertensive heart disease with heart failure; R40.2412 Glasgow coma scale score 13-15, at arrival to emergency department; R29.701 NIHSS score 1; I16.0 Hypertensive urgency; R20.0 Anesthesia of skin; F41.9 Anxiety disorder, unspecified; E78.5 Hyperlipidemia, unspecified; E83.42 Hypomagnesemia; Z79.84 Long term (current) use of oral hypoglycemic drugs; Z87.891 Personal history of nicotine dependence; Z91.14 Patient's other noncompliance with medication regimen
CPT/HCPCS: 36415; 36416; 70450; 70496; 70498; 70551; 71045; 80048; 80053; 80061; 81001; 82550; 82607; 82746; 83036; 83735; 84443; 84484; 85025; 85610; 85730; 93005; 93306; 94760; J0360; J1815; J3475; Q9967